=== PATIENT | male | born 1995 | race Caucasian/White ===

== ENCOUNTER 2017-05-13 17:05 | Emergency (ER) | payer SELFPAY ==
[~2017-05-13] VITALS: Ht 175.3 cm; Wt 72.6 kg
[2017-05-13 18:06] LABS: Alcohol, Urine < 3.0 mg/dL (0-5); Amphetamine Screen, Urine NEGATIVE (NEGATIVE); Barbiturate Scree,Urine NEGATIVE (NEGATIVE); Benzodiazephine Screen, Urine NEGATIVE (NEGATIVE); Cannabinoid Screen, Urine NEGATIVE (NEGATIVE); Cocaine Screen, Urine NEGATIVE (NEGATIVE); Opiate Scree,Urine NEGATIVE (NEGATIVE); Phencyclidine Screen, Urine NEGATIVE (NEGATIVE)
[2017-05-13 18:27] LABS: Basophils # (auto) 0 uL; Eosinophils # (auto) 0 uL; Hemoglobin 17.7 g/dL (13.5-17.5); Lymphocytes # (auto) 1.9 uL; Monocytes # (auto) 0.4 uL; Neutrophils # (auto) 8.7 uL; Nucleated Red Blood Cells % 0.1 %
[2017-05-13 18:29] LABS: Basophils % (auto) 0.3 % (0.0-2.0); Eosinophils % (auto) 0.1 % (0.0-7.0); Hematocrit 51.9 % (41.0-53.0); Mean Corpuscular Hemoglobin 31.5 pg (28.0-32.0); Mean Corpuscular Hgb Conc. 34.1 g/dL (32.0-36.0); Mean Corpuscular Volume 92.4 fL (80.0-100.0); Monocytes % (auto) 3.3 % (0.0-12.0); Neutrophils % (auto) 79.3 % (37.0-80.0); Platelet Count (auto) 307 10^3/uL (140-450); Red Blood Cells 5.62 10^6/uL (4.5-5.90); White Blood Cell 10.9 10^3/uL (4.4-10.8)
[2017-05-13 18:32] LABS: Albumin 4.9 g/dL (3.4-5.0); BUN/Creatinine Ratio 9.9; Bilirubin, Total 0.8 mg/dL (0.2-1.0); Calcium 9.6 mg/dL (8.5-10.1); Potassium 3.8 mmol/L (3.5-5.1); Total Protein 7.9 g/dL (6.4-8.2)
[2017-05-14] MEDS ORDERED: PENICILLIN G BENZ 1200000 UNITS/2 ML SYRG IM ONE (00:15)
[2017-05-14 02:00] VITALS: BP 119/71
== END 2017-05-14 02:44 | disposition home or self-care (01) ==
LOC: ER 17:21
DX: R07.89 Other chest pain (principal); J40 Bronchitis, not specified as acute or chronic; R09.1 Pleurisy; J20.9 Acute bronchitis, unspecified; K21.9 Gastro-esophageal reflux disease without esophagitis
CPT/HCPCS: 36415; 71046; 80053; 80307; 84443; 84484; 85025; 87070; 96372; 99285; J0561; 93005

== ENCOUNTER 2017-05-28 15:39 | Emergency (ER) | payer MEDICAID, OTHER ==
[~2017-05-28] VITALS: Ht 175.3 cm; Wt 76.2 kg
[2017-05-28 16:12] VITALS: BP 130/90
[2017-05-28] MEDS ORDERED: cefTRIAXone SOD 1,000 MG VL IM ONE (17:00)
[2017-05-28] MEDS ORDERED: KETOROLAC TROMETH 60MG/2ML VIAL IM ONE (17:00)
== END 2017-05-28 18:08 | disposition home or self-care (01) ==
LOC: ER 15:43
DX: J02.9 Acute pharyngitis, unspecified (principal); F41.1 Generalized anxiety disorder; K21.9 Gastro-esophageal reflux disease without esophagitis
CPT/HCPCS: 71046; 82962; 96372; 99284; J0696; J1885

== ENCOUNTER 2017-06-06 13:36 | Emergency (ER) | payer MEDICAID ==
[~2017-06-06] VITALS: Ht 175.3 cm; Wt 72.6 kg
[2017-06-06 14:16] LABS: Basophils # (auto) 0 uL; Basophils % (auto) 0.3 % (0.0-2.0); Eosinophils # (auto) 0 uL; Eosinophils % (auto) 0.1 % (0.0-7.0); Lymphocytes # (auto) 1.2 uL; Monocytes # (auto) 0.5 uL
[2017-06-06 14:18] LABS: Hematocrit 53.4 % (41.0-53.0); Hemoglobin 18.5 g/dL (13.5-17.5); Lymphocytes % (auto) 10.7 % (10.0-50.0); Mean Corpuscular Hgb Conc. 34.6 g/dL (32.0-36.0); Mean Corpuscular Volume 92.5 fL (80.0-100.0); Monocytes % (auto) 4.5 % (0.0-12.0); Neutrophils # (auto) 9.1 uL; Neutrophils % (auto) 84.4 % (37.0-80.0); Nucleated Red Blood Cells % 0.1 %; Platelet Count (auto) 323 10^3/uL (140-450); Red Blood Cells 5.78 10^6/uL (4.5-5.90); Red Cell Distribution Width 13.3 % (11.8-14.3); White Blood Cell 10.8 10^3/uL (4.4-10.8)
[2017-06-06 14:35] LABS: Albumin 4.8 g/dL (3.4-5.0); BUN/Creatinine Ratio 9.7; Bilirubin, Total 0.9 mg/dL (0.2-1.0); Calcium 9.3 mg/dL (8.5-10.1); Potassium 3.8 mmol/L (3.5-5.1)
[2017-06-06] MEDS ORDERED: SODIUM CHLORIDE 0.9% 1,000 ML IV ONE (15:43)
[2017-06-06 16:47] LABS: Alcohol, Urine < 3.0 mg/dL (0-5); Amphetamine Screen, Urine NEGATIVE (NEGATIVE); Barbiturate Scree,Urine NEGATIVE (NEGATIVE); Benzodiazephine Screen, Urine NEGATIVE (NEGATIVE); Cannabinoid Screen, Urine NEGATIVE (NEGATIVE); Cocaine Screen, Urine NEGATIVE (NEGATIVE); Opiate Scree,Urine NEGATIVE (NEGATIVE); Phencyclidine Screen, Urine NEGATIVE (NEGATIVE)
[2017-06-06 18:00] VITALS: BP 128/77
== END 2017-06-06 18:30 | disposition home or self-care (01) ==
LOC: ER 13:36
DX: M54.16 Radiculopathy, lumbar region (principal); R51 Headache; K21.9 Gastro-esophageal reflux disease without esophagitis; R20.0 Anesthesia of skin
CPT/HCPCS: 36415; 80053; 80307; 85025; 96360; 99284; J7030

== ENCOUNTER 2017-06-13 09:16 | Emergency (ER) | payer MEDICAID ==
[~2017-06-13] VITALS: Ht 175.3 cm; Wt 68.0 kg
[2017-06-13 10:34] LABS: Basophils # (auto) 0 uL; Basophils % (auto) 0.7 % (0.0-2.0); Eosinophils # (auto) 0 uL; Eosinophils % (auto) 0.3 % (0.0-7.0); Hematocrit 48.1 % (41.0-53.0); Hemoglobin 16.4 g/dL (13.5-17.5); Lymphocytes # (auto) 1.5 uL; Lymphocytes % (auto) 22.6 % (10.0-50.0); Mean Corpuscular Hemoglobin 31.3 pg (28.0-32.0); Mean Corpuscular Hgb Conc. 34.2 g/dL (32.0-36.0); Mean Corpuscular Volume 91.7 fL (80.0-100.0); Monocytes # (auto) 0.3 uL; Monocytes % (auto) 4.7 % (0.0-12.0); Neutrophils # (auto) 4.7 uL; Neutrophils % (auto) 71.7 % (37.0-80.0); Platelet Count (auto) 259 10^3/uL (140-450); Red Blood Cells 5.25 10^6/uL (4.5-5.90); Red Cell Distribution Width 13.4 % (11.8-14.3); White Blood Cell 6.6 10^3/uL (4.4-10.8)
[2017-06-13 10:48] LABS: Urine Bacteria NONE SEEN /hpf (None Seen); Urine Blood Negative /uL (Negative); Urine Mucus FEW (None Seen); Urine Specific Gravity 1.014 (1.001-1.035); Urine WBC 1 /hpf (0 - 3)
[2017-06-13 10:55] LABS: Albumin 4.5 g/dL (3.4-5.0); BUN/Creatinine Ratio 8.5; Bilirubin, Total 0.5 mg/dL (0.2-1.0); Calcium 9.1 mg/dL (8.5-10.1); Potassium 3.5 mmol/L (3.5-5.1); Total Protein 7.7 g/dL (6.4-8.2)
[2017-06-13] MEDS ORDERED: SODIUM CHLORIDE 0.9% 1,000 ML IV ONE (11:09)
[2017-06-13] MEDS ORDERED: DEXAMETHASONE SOD PHOS 4 MG/1ML SDV INJ IV ONE (11:15)
[2017-06-13 15:31] VITALS: BP 122/75
== END 2017-06-13 15:53 | disposition home or self-care (01) ==
LOC: ER 09:16
DX: M54.16 Radiculopathy, lumbar region (principal); K21.9 Gastro-esophageal reflux disease without esophagitis; H57.12 Ocular pain, left eye
CPT/HCPCS: 36415; 72131; 80053; 81001; 83690; 85025; 96361; 96374; 99285; J1100; J7030